=== PATIENT | male | born 1975 | race Caucasian/White ===

== ENCOUNTER 2019-02-18 01:29 | Outpatient (CLI) | payer BC | END 2019-02-18 01:30 | disposition critical access hospital (66) | LOC: EMS 01:29 | PROVIDERS: ATTEND Surgery | DX: R53.1 Weakness (principal); R11.0 Nausea; R09.89 Other specified symptoms and signs involving the circulatory and respiratory systems | CPT/HCPCS: A0425; A0427 ==

== ENCOUNTER 2019-02-18 02:07 | Emergency (ER) | payer BC, OTHER ==
[2019-02-18 02:21] VITALS: BP 134/75
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
== END 2019-02-18 02:35 | disposition home or self-care (01) ==
LOC: EDUNIT# → ED 02:07
DX: I49.3 Ventricular premature depolarization (principal); X50.9XXA Other and unspecified overexertion or strenuous movements or postures, initial encounter; X00.0XXA Exposure to flames in uncontrolled fire in building or structure, initial encounter; Y93.89 Activity, other specified; Y92.009 Unspecified place in unspecified non-institutional (private) residence as the place of occurrence of the external cause; Y99.0 Civilian activity done for income or pay; I10 Essential (primary) hypertension
CPT/HCPCS: 93005; 99283

== ENCOUNTER 2020-09-02 08:07 | Emergency (ER) | payer BC, OTHER ==
[2020-09-02] MEDS ORDERED: LACTATED RINGERS 2,000 ML IV STA (08:54)
[2020-09-02 08:59] LABS: BASOPHILS # (AUTO) 0.1 10^3/uL (0.0-0.1); BASOPHILS % (AUTO) 0.4 %; EOSINOPHILS # (AUTO) 0.1 10^3/uL (0.0-0.7); EOSINOPHILS % (AUTO) 0.6 %; HGB - HEMOGLOBIN 15.9 g/dL (14.0-18.0); LYMPHOCYTES # (AUTO) 1.8 10^3/uL (1.5-3.5); LYMPHOCYTES % (AUTO) 12.6 %; MEAN CORPUSCULAR HEMOGLOBIN 30.7 pg (27.0-31.0); MEAN CORPUSCULAR HGB CONC 34.9 g/dL (32.0-36.0); MEAN PLATELET VOLUME 10.9 fL (7.4-11.4); MONOCYTES # (AUTO) 1.1 10^3/uL (0.0-1.0); MONOCYTES % (AUTO) 7.9 %; NEUTROPHILS # (AUTO) 11.3 10^3/uL (1.5-6.6); NEUTROPHILS % (AUTO) 77.7 %; PLT - PLATELET COUNT 204 10^3/uL (130-450); RED BLOOD COUNT 5.18 10^6/uL (4.70-6.10); RED CELL DISTRIBUTION WIDTH 11.9 % (12.0-15.0); WHITE BLOOD COUNT 14.5 x10^3/uL (4.8-10.8)
[2020-09-02] MEDS: KETOROLAC 15 MG/ML VIAL IVP STA (09:01)
[2020-09-02 09:07] LABS: ALBUMIN 4.3 g/dL (3.2-5.5); ALBUMIN/GLOBULIN RATIO 1.3 (1.0-2.2); BILIRUBIN,TOTAL 0.6 mg/dL (0.2-1.0); CREATININE 1.5 mg/dL (0.6-1.2); TOTAL PROTEIN 7.7 g/dL (6.7-8.2)
[2020-09-02] MEDS ORDERED: IOVERSOL 320 100 ML VIAL IVP ONE ×2 (09:08→09:22)
[2020-09-02 09:35] LABS: BILIRUBIN,URINE NEGATIVE (NEGATIVE); GLUCOSE, URINE (UA) NEGATIVE (NEGATIVE); KETONES,URINE (UA) NEGATIVE (NEGATIVE); LEUKOCYTE ESTERASE, URINE NEGATIVE (NEGATIVE); NITRITE,URINE NEGATIVE (NEGATIVE); OCCULT BLOOD,URINE LARGE (NEGATIVE); PROTEIN,URINE NEGATIVE (NEGATIVE); UROBILINOGEN,URINE 0.2 (NORMAL) E.U./dL (NORMAL)
[2020-09-02 09:36] LABS: CLARITY,URINE CLEAR (CLEAR)
--- NOTE | 2020-09-02 09:49 | CT Report ---
PROCEDURE: Abdomen/Pelvis W INDICATIONS: Abdominal pain, acute, nonlocalized. Clinical concern for ruptured abdominal aortic ane urysm. Additional history is gathered of left flank pain. CONTRAST: IV CONTRAST: Optiray 320 ml: 100 PO CONTRAST: *NO PO CONTRAST TECHNIQUE: After the administration of nonionic IV contrast, 5 mm thick sections acquired from the diaphragms to the symphysis. 5 mm thick coronal and sagittal reformats were acquired. For radiation dose reducti on, the following was used: automated exposure control, adjustment of mA and/or kV according to cesilia ent size. COMPARISON: Correlation is made with prior report from abdomen and pelvis CT examinations 10/04/2009 . No images from that study can be displayed at the time of this dictation. FINDINGS: Image quality: Excellent. ABDOMEN: Lung bases: Lung bases are clear. Heart size is normal. Solid organs: The liver demonstrates normal size. Diffuse fatty liver infiltration can be seen. The spleen demonstrates normal size, without focal abnormalities. An accessory splenule is incidentally noted along the hilum of the primary spleen. Gallbladder wall does not appear thickened. Biliary system is non dilated. Pancreas enhances normally. No adrenal nodules. There is an obstructing stone seen at the left ureteropelvic junction, as on series 3 image 51 and on series 6 image 39 measuring 11 mm. There is associated left-sided hydronephrosis, with perinephric f at stranding. The right kidney is atrophic, with focal volume loss, particularly inferiorly. There is a prominent r ight-sided staghorn calculus that measures up to 4.7 cm. Postoperative clips are seen adjacent to the right kidney. No gallo right-sided hydronephrosis or hydroureter. Nonenhancing right-sided cysts are seen, some of which are likely related to chronically enlarged calyces. Peritoneum and bowel: Bowel loops demonstrate normal wall thickness and caliber. No free fluid or a ir. A normal appendix is incidentally noted. Nodes and vessels: No retroperitoneal or mesenteric adenopathy by size criteria. Aorta and inferior vena cava are normal in size. Miscellaneous: No ventral hernias. PELVIS: Genitourinary: Bladder wall thickness is normal. Miscellaneous: No inguinal adenopathy. Fat-containing bilateral inguinal hernias are seen, left lar bernice than right. Bones: No suspicious bony lesions. No vertebral body compression fractures. IMPRESSION: Negative for abdominal aortic aneurysm. Obstructing left-sided kidney stone at the left ureteral pelvic junction measuring 11 mm, with associ ated left-sided hydronephrosis and perinephric fat stranding. Atrophic right kidney with staghorn calculus and cysts versus chronically enlarged calyces. Incidental note is made of: Fatty liver infiltration Accessory splenule Bilateral fat-containing inguinal hernias Reviewed by: Siddhartha Mendoza MD on 09/02/2020 8:47 AM [place] Approved by: Siddhartha Mendoza MD on 09/02/2020 8:47 AM [place] Station ID: [id number]
[2020-09-02 10:05] LABS: BACTERIA,URINE Few /HPF (None Seen); SQUAMOUS EPITHELIAL CELL,UR FEW Squamous (<= Few)
[2020-09-02 11:26] VITALS: BP 158/84
--- NOTE | 2020-09-02 15:33 | ED Physician Documentation ---
History of Present Illness - Stated complaint Stated Complaint: BACK PX - Chief complaint Chief Complaint: Back Pain - History obtained from History obtained from: Patient - Additonal information Additional information: 44-year-old man with past medical history multiple uric acid stones with prior Lithotripsy and stenting at [facility] presents with left lower back pain radiating to the flank and left lower quadrant since 3 AM, sudden in onset waking him from sleep, intermittent, sharp and stabbing, severe, without exacerbating or relieving factors. Denies fever, urinary symptoms, nausea. He does have a history of high blood pressure. Review of Systems Ten Systems: 10 systems reviewed and negative Constitutional: denies: Fever, Chills GI: reports: Abdominal Pain. denies: Nausea Musculoskeletal: reports: Back pain PD PAST MEDICAL HISTORY - Past Medical History Past Medical History: Yes Cardiovascular: Hypertension Respiratory: None Neuro: None Endocrine/Autoimmune: None GI: None : Kidney stones HEENT: None Psych: None Musculoskeletal: Chronic back pain Derm: None - Past Surgical History Past Surgical History: Yes General: Other Ortho: Rotator cuff repair, Other - Present Medications Home Medications: Ambulatory Orders Medication Instructions Recorded Confirmed Lisinopril [Zestril] 40 mg PO DAILY 09/02/20 09/02/20 Tamsulosin HCl [Flomax] 0.4 mg PO QDAC 14 Days #14 09/02/20 cap.er.24h amLODIPine [Norvasc] 5 mg PO DAILY 09/02/20 09/02/20 - Allergies Allergies/Adverse Reactions: Allergies Allergy/AdvReac Type Severity Reaction Status Date / Time No Known Drug Allergies Allergy Verified 09/02/20 08:11 - Social History Does the pt smoke?: No Smoking Status: Never smoker Does the pt drink ETOH?: No Does the pt have substance abuse?: No - Immunizations Immunizations are current?: Yes - POLST Patient has POLST: No PD ED PE NORMAL - Vitals Vital signs reviewed: Yes - General General: Alert and oriented X 3 - HEENT HEENT: Atraumatic, PERRL, EOMI - Neck Neck: Supple, no meningeal sign - Cardiac Cardiac: RRR - Respiratory Respiratory: No respiratory distress - Abdomen Abdomen: Non tender, Non distended - Male Male : Deferred - Back Back: Other (Left CVA tender to palpation) - Derm Derm: Normal color - Extremities Extremities: No deformity - Neuro Neuro: Alert and oriented X 3 - Psych Psych: Normal mood, Normal affect Results - Vitals Vitals: Vital Signs - 24 hr 09/02/20 09/02/20 09/02/20 08:11 08:36 10:14 Temperature 36.7 C 36.9 C Heart Rate 72 75 76 Respiratory 24 24 20 Rate Blood Pressure 180/92 H 144/70 H 144/76 H O2 Saturation 99 96 99 09/02/20 11:25 Temperature Heart Rate 71 Respiratory 18 Rate Blood Pressure 158/84 H O2 Saturation 96 Oxygen O2 Source Room air - Labs Labs: Laboratory Tests 09/02/20 09/02/20 09/02/20 08:30 08:30 09:25 WBC 14.5 H RBC 5.18 Hgb 15.9 Hct 45.6 MCV 88.0 MCH 30.7 MCHC 34.9 RDW 11.9 L Plt Count 204 MPV 10.9 Neut # (Auto) 11.3 H Lymph # (Auto) 1.8 [place] # (Auto) 1.1 H Eos # (Auto) 0.1 Baso # (Auto) 0.1 Absolute Nucleated RBC 0.00 Nucleated RBC % 0.0 Sodium 139 Potassium 4.3 Chloride 100 L Carbon Dioxide 22 Anion Gap 17.0 H BUN 22 H Creatinine 1.5 H Estimated GFR (MDRD) 51 L Glucose 121 H Calcium 10.0 Total Bilirubin 0.6 AST 41 ALT 53 Alkaline Phosphatase 51 Total Protein 7.7 Albumin 4.3 Globulin 3.4 Albumin/Globulin Ratio 1.3 Lipase 36 Urine Color YELLOW Urine Clarity CLEAR Urine pH 5.0 Ur Specific [place] 1.010 Urine Protein NEGATIVE Urine Glucose (UA) NEGATIVE Urine Ketones NEGATIVE Urine Occult Blood LARGE H Urine Nitrite NEGATIVE Urine Bilirubin NEGATIVE Urine Urobilinogen 0.2 (NORMAL) Ur Leukocyte Esterase NEGATIVE Urine RBC 6-10 H Urine WBC 0-3 Ur Squamous Epith Cells FEW Squamous Urine Bacteria Few Ur Microscopic Review INDICATED Urine Culture Comments NOT INDICATED PD MEDICAL DECISION MAKING - ED course Complexity details: reviewed results, re-evaluated patient, d/w patient, d/w seo consultant (Dr. Gomes urology) ED course: 41-year-old man with history of recurrent uric acid stones presented with left flank pain radiating to the front, found to have 11 mm obstructing UPJ stone with perinephric inflammation on CT as well as hydroureter. WBC mildly elevated. noninfected urine. creatinine mildly elevated without baseline labs. atrophic R kidney. Discussed with Dr. Hua, on-call for [facility] urology group who recommends outpatient follow-up on Friday with Dr. Marcella Gutierrez for lithotripsy/stenting. Departure - Departure Disposition: Home, Self Care Clinical Impression: Nephrolithiasis, Hydronephrosis, Flank pain, Abdominal pain, Back pain, RAYSA (acute kidney injury), Kidney atrophy Condition: Good Instructions: Kidney Stones Prescriptions: Tamsulosin HCl [Flomax] 0.4 mg PO QDAC 14 Days #14 cap.er.24h Comments: You have been seen in the emergency department for kidney stones. It looks like your kidneys have a small amount of injury, and we do not have previous labs for you. It is very important for you to drink lots of water and to call [facility] urology early on Friday morning for lithotripsy and stenting. If you cannot get an appointment this week then you should come back into the emergency department and we will admit you. I spoke with Dr. Hua with the [facility] urology group, and she will talk to Dr. Marcella Dickens who is on-call on Friday and is expecting your call. Return to the ED immediately if you have fever, severe pain or any new or worsening symptoms. [facility] - Urology Website Directions At: [facility] [address] [place] [address] ~22 mi Discharge Date/Time: 09/02/20 11:36
== END 2020-09-02 11:36 | disposition home or self-care (01) ==
LOC: ED 08:07
DX: N13.2 Hydronephrosis with renal and ureteral calculous obstruction (principal); N17.9 Acute kidney failure, unspecified; I10 Essential (primary) hypertension
CPT/HCPCS: 36415; 74177; 80053; 81001; 83690; 85025; 96374; 99284; 99285; J7120; Q9967; 81003; 87086

== ENCOUNTER 2021-04-19 15:33 | Outpatient (CLI) | payer BC ==
[2021-04-19 20:06] LABS: ALBUMIN 4.5 g/dL (3.2-5.5); ALBUMIN/GLOBULIN RATIO 1.4 (1.0-2.2); BILIRUBIN,TOTAL 0.9 mg/dL (0.2-1.0); CALCIUM 9.2 mg/dL (8.5-10.3); POTASSIUM 4.2 mmol/L (3.5-5.0); TOTAL PROTEIN 7.7 g/dL (6.7-8.2); URIC ACID 6.9 mg/dL (2.6-7.2)
== END 2021-04-19 15:34 | disposition home or self-care (01) ==
LOC: LAB.S 15:33
PROVIDERS: ATTEND Internal Medicine Nephrology
DX: N20.0 Calculus of kidney (principal)
CPT/HCPCS: 36415; 80053; 83970; 84550

== ENCOUNTER 2021-07-05 15:44 | Outpatient (CLI) | payer BC ==
[2021-07-05 19:47] LABS: BILIRUBIN,URINE NEGATIVE (NEGATIVE); GLUCOSE, URINE (UA) NEGATIVE (NEGATIVE); KETONES,URINE (UA) NEGATIVE (NEGATIVE); LEUKOCYTE ESTERASE, URINE NEGATIVE (NEGATIVE); NITRITE,URINE NEGATIVE (NEGATIVE); OCCULT BLOOD,URINE MODERATE (NEGATIVE); PROTEIN,URINE NEGATIVE (NEGATIVE); UROBILINOGEN,URINE 0.2 (NORMAL) E.U./dL (NORMAL)
[2021-07-05 19:58] LABS: CLARITY,URINE CLOUDY (CLEAR)
[2021-07-05 20:12] LABS: AMORPHOUS SEDIMENT,UR Few /LPF; BACTERIA,URINE Moderate /HPF (None Seen); CRYSTALS,URINE 0-2 Uric Acid /LPF; SQUAMOUS EPITHELIAL CELL,UR RARE Squamous (<= Few); WBC,URINE 0-3 /HPF (0-3)
== END 2021-07-05 15:45 | disposition home or self-care (01) ==
LOC: LAB.S 15:44
PROVIDERS: ATTEND Internal Medicine Nephrology
DX: N20.0 Calculus of kidney (principal)
CPT/HCPCS: 81001; 81003; 87086

== ENCOUNTER 2022-03-06 06:50 | Outpatient (CLI) | payer BC ==
--- NOTE | 2022-03-06 13:47 | Ultrasound Report ---
PROCEDURE: Retroperitoneal INDICATIONS: Nephrolithiasis. TECHNIQUE: Real-time scanning was performed of the retroperitoneal organs, with image documentation. COMPARISON: CT abdomen and pelvis 09/02/2020. FINDINGS: Kidneys: Kidneys are normal in size. Right kidney measures 13.7 cm long; left kidney measures 13.6 cm long. Right renal cortical thickness is 1.1 cm; left renal cortical thickness is 2.1 cm. No solid renal mass. Several anechoic cysts. On the right these measure 4.2 cm, 2.1 cm, and 2.1 cm. Right kid pj superior pole calculus measuring 2.8 cm. Left kidney superior pole calculus measuring 0.9 cm. Lef t kidney inferior pole calculus measuring 1 cm. Mild left caliectasis. Pancreas: Visualized portions of the pancreas are sonographically normal. Aorta: Visualized aorta is normal in caliber at 3 cm or less. Iliac arteries: Proximal common iliac arteries are normal in caliber at 2.5 cm or less. IVC: Intrahepatic inferior vena cava is patent. Bladder: Pre-void bladder volume is 221 mL. Post-void residual is 7 mL. Pre-void images demonstrat e no intraluminal masses or stones. On pre-void images, both ureteral jets are noted with color Dopp ler interrogation. (Of note, ureteral jets may not be detectable in up to 25% of cases due to insuff icient differences in specific gravity between ureteral and bladder urine). Miscellaneous: No free abdominal fluid. Prostate measures 4.4 x 4.1 x 3.6 cm, estimated volume of 3 4 cc. IMPRESSION: 1. Mild left caliectasis. 2. Bilateral kidney stones. Largest on the right measures 2.8 cm; and on the left 1 cm. 3. Prominent prostate gland. Consider CT KUB for further evaluation. Reviewed by: Se Wagner MD on 03/06/2022 1:46 PM PDT Approved by: Se Wagner MD on 03/06/2022 1:46 PM PDT Station ID: [id number]
== END 2022-03-06 06:51 | disposition home or self-care (01) ==
LOC: DI 06:50
PROVIDERS: ATTEND Urology
DX: N20.0 Calculus of kidney (principal); N28.89 Other specified disorders of kidney and ureter; N40.0 Benign prostatic hyperplasia without lower urinary tract symptoms